=== PATIENT | female | born 1970 | race Caucasian/White ===

== ENCOUNTER 2016-11-06 10:42 | Day surgery (SDC) | payer OTHER ==
[~2016-11-06 10:42] MED LIST: ceFAZolin 2 GM/DEXTROSE 100 ML IV ONE
[2016-11-06] MEDS ORDERED: CEFAZOLIN 2 GM/DEXTROSE/100 ML BAG IV ONE (11:14)
[2016-11-06] MEDS ORDERED: LR 1,000 ML IV ONE (11:24)
[2016-11-06] MEDS ORDERED: LIDOCAINE 1% 5 ML SDV ID PRN (11:24)
[2016-11-06] MEDS ORDERED: MIDAZOLAM 2 MG/2 ML VIAL ONE (12:03)
[2016-11-06] MEDS ORDERED: fentaNYL 100 MCG/2 ML INJ ONE (12:03)
[2016-11-06] MEDS ORDERED: PROPOFOL 200 MG/20 ML VIAL ONE (12:04)
[2016-11-06] MEDS ORDERED: LIDOCAINE 1% 30 ML SDV ONE (12:15)
[2016-11-06] MEDS ORDERED: LIDOCAINE 2% 5 ML SDV ONE (12:16)
[2016-11-06] MEDS ORDERED: BUPIVACAINE 0.5% 30 ML SDV ONE (12:16)
[2016-11-06] MEDS ORDERED: CYANO/VITAMIN B12 1000 MCG/ML VIAL ONE (12:16)
[2016-11-06] MEDS ORDERED: DEXAMETHASONE 4 MG/ML VIAL ONE (12:16)
[2016-11-06] MEDS ORDERED: BACITRACIN 50,000 UNITS/10 ML SYR IRR ONE ×2 (12:17→13:20)
[2016-11-06] MEDS ORDERED: ROPIVACAINE HCL 20 MG/10 ML INJ EP ONE (12:17)
[2016-11-06] MEDS ORDERED: PROPOFOL/EMULSION 500 MG/50 ML BOTTLE IV ONE (12:43)
[2016-11-06] MEDS ORDERED: BUPIVACAINE 0.25% 30 ML SDV ONE (13:00)
--- NOTE | 2016-11-07 15:56 | GOP ---
[f rep st] OPERATIVE REPORT DATE OF OPERATION: 11/06/2016 SURGEON: Rimma Mancini DPM MD DO [facility]IDENT [facility]: Elvira Mancini D.P.M. ANESTHESIA: MAC, light general. ANESTHESIOLOGIST: Julio Hernandez M.D. PREOPERATIVE DIAGNOSIS: 1. Bunion hallux valgus deformity, left foot. 2. 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 3. Benign skin lesion, verruca, left foot. POSTOPERATIVE DIAGNOSIS: 1. Bunion hallux valgus deformity, left foot. 2. 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 3. Benign skin lesion, verruca, left foot. 4. Benign mucoid type cyst, ganglion, medial capsule, 1st metatarsal. PROCEDURE PERFORMED: 1. HAV repair: Distal 1st metatarsal osteotomy, bunionectomy with screw fixation, left foot. 2. Excision of neuroma 3rd intermetatarsal space, left foot. 3. Excision of skin lesion, verruca, plantar, left foot. 4. Excision of benign mucoid type cyst along the medial capsule, 1st metatarsal left foot. FINDINGS: Enlarged medial emincence first methead left cyst in medial capsule first mtpj left large mass cystic and rubbery 3rd web space left papular skin lesion consistent with wart left. DESCRIPTION OF PROCEDURE: The patient was brought into the operating room and placed on the operating table in the supine position. Intravenous sedation was administered by the anesthesiologist. A posterior tibial and peripheral nerve block was obtained utilizing a total of 20 mL of a 1:1:1 mix of 0.2% ropivacaine , 0.5% Marcaine and 1% lidocaine plain. The lower extremity was prepped and draped in the usual sterile manner. After the limb was elevated, it was exsanguinated with an Esmarch bandage and the ankle tourniquet was inflated to 220 mmHg and the procedure was begun. Webril padding utilized under the ankle cuff. HAV repair: Attention was directed toward the dorsal medial aspect of the 1st metatarsophalangeal joint where a linear incision was created. Incision was carefully deepened with care of neurovascular structures and then clamped and cauterized bleeders. Linear capsulotomies were performed, exposing the hypertrophied medial eminence and the 1st metatarsal head. A sagittal saw was utilized to resect a portion of the medial eminence. Then utilizing a [place] osteotomy guide and a K-wire, osteotomy was created with a longer dorsal arm. Capital fragment was transposed over laterally by 6 mm, impacted onto the shaft medially. Temporary fixation achieved with K-wires. C-arm utilized throughout the procedure to verify alignment and positioning. The osteotomy was fixated with [place] screws, 1 headless 2.5 measuring 14 mm in length. The second point of fixation headed [place] screw 2.5 also measuring 14 mm in length. The osteotomy was stable and congruent. The remaining medial metaphyseal shelf was resected. The dorsal medial aspect of the 1st metatarsal head was smoothed with a power rotating tonja until no sharp edges were noted. Loading of the forefoot and satisfactory alignment noted of the hallux. Then in performing the T capsulotomy, thick, gelatin-like fluid was noted in the capsule. A cyst type structure was identified and excised. It was sent to Pathology for gross and microscopic examination. Note: Prior to performing the osteotomy, attention was directed toward the lateral aspect of the joint where the tight adductor tendon was identified and released at its base on the proximal phalanx. The extensor hallucis brevis was released as well. Capsular closure achieved with 2-0 and 3-0 Vicryl. Subcutaneous closure achieved with Monocryl 4-0. Excision of neuroma. Attention was directed toward the dorsal aspect of the 3rd intermetatarsal space where a linear incision was created. Incision was carefully deepened with care of neurovascular structures and clamping and cauterizing bleeders. Shiny rubbery soft tissue mass was noted in the web space , consistent with that of a neuroma with scar tissue. The distal branch to the 4th digit was transected and then the branch to the 3rd digit was resected. A tight intermetatarsal ligament was identified and released allowing for exposure of the proximal stem of the nerve, which was then transected at the level of the intrinsic musculature and proximal to the lesser metatarsal heads. Specimen sent to Pathology for gross and microscopic examination. Prior to transection, 1 mL of Decadron combined with 1 mL of B12 and 1 mL of 0.25% Marcaine plain was injected. The ankle tourniquet was released and a normal hyperemic response was noted to all digits. A separate stab incision had been created for exiting of a silastic drain placed in by the 3rd intermetatarsal space. Subcutaneous closure achieved with 4-0 Monocryl. Skin was closed with 4-0 Prolene in a horizontal and interrupted suture manner. All incision sites were closed with 4-0 Prolene in a horizontal and interrupted suture fashion. Attention was directed towards the plantar medial aspect of the 1st metatarsal head, where an approximately 5 x 7 mm skin lesion was noted. The skin lesion was outlined with a 64 blade and then excised with a curette. [place] granular base was noted. Specimen sent to Pathology for gross and microscopic examination. Base cauterized. Xeroform bandage applied. Dressings included Xeroform, 4x4s, fluffs, Julio, tape reinforced with an Rolando bandage. The patient tolerated the procedure and anesthesia well, and left the operating room with vital signs stable and vascular status intact to all digits. There were no intraoperative complications. In postoperative recovery, she was doing well. Her will be providing her transportation home. She was fitted with a Cryo/Cuff. INDICATIONS FOR PROCEDURE: The patient reports pain with a bunion deformity for greater than 12 months duration. She initially consulted with me in December 2015 , when we reviewed preventative care and shoe gear. For the past couple months, she reports wearing Birkenstocks and Chacos, and despite the bunion can ache. She relates her mother has a severe bunion deformity. She also reports having neuroma issues, have been there for 12 years. Reports the pain is 3/10 to 4/10. If she hits it funny it can hurt. Even without any activities, the neuroma can cause pain. She wears metatarsal pads at all times. If not, she has shooting pain in the ball of the foot. On physical exam, skin lesion consistent with that of a wart was noted in the plantar aspect of her foot. We discussed this at her preoperative visit that this can be excised at the time of surgery. She has had this for a few months duration. PROGNOSIS: Good. /[id number]/MODL MTDD
== END 2016-11-06 17:37 | disposition home or self-care (01) ==
LOC: FSGY 10:42 → FPAT 10:42
PROVIDERS: ATTEND Podiatrist
PROC: 01BH0ZZ Excision of Peroneal Nerve, Open Approach (ICD-10-PCS; principal; 2016-11-06 12:00)
PROC: 0SSN04Z Reposition Left Metatarsal-Phalangeal Joint with Internal Fixation Device, Open Approach (ICD-10-PCS; principal; 2016-11-06 12:00)
PROC: 0HBNXZZ Excision of Left Foot Skin, External Approach (ICD-10-PCS; principal; 2016-11-06 12:00)
DX: M20.12 Hallux valgus (acquired), left foot (principal); G57.62 Lesion of plantar nerve, left lower limb; B07.0 Plantar wart
CPT/HCPCS: 11420; 28080; 28292; 73620; C1769; C1713; J0690; J1100; J2250; J2704; J2795; J3010

== ENCOUNTER → 2017-05-21 | Outpatient (CLI) | payer OTHER | LOC: FIMAGING 16:08 | PROVIDERS: ATTEND Obstetrics & Gynecology | DX: Z12.31 Encounter for screening mammogram for malignant neoplasm of breast (principal) | CPT/HCPCS: G0202 ==

== ENCOUNTER → 2018-08-03 | Outpatient (CLI) | payer OTHER | LOC: BMCIMAGING 13:12 | PROVIDERS: ATTEND Midwife | DX: Z12.31 Encounter for screening mammogram for malignant neoplasm of breast (principal) ==